=== PATIENT | female | born 2000 | race Caucasian/White ===

== ENCOUNTER 2019-04-09 03:05 | Emergency (ER) | payer OTHER ==
[~2019-04-09] VITALS: Ht 172.7 cm; Wt 68.2 kg
[2019-04-09] MEDS ORDERED: NEXP1IMP SC (03:33)
[2019-04-09 05:08] LABS: BLOOD UREA NITROGEN 11 MG/DL (7-18); CALCIUM LEVEL 8.7 MG/DL (8.5-10.1); CARBON DIOXIDE LEVEL 28 MEQ/L (21-32); CHLORIDE LEVEL 107 MEQ/L (98-107); CREATININE FOR GFR 0.84 MG/DL (0.55-1.30); GLUCOSE, FASTING 92 MG/DL (70-100); HCG, SERUM QUALITATIVE NEGATIVE (NEGATIVE); POTASSIUM SERUM 3.8 MEQ/L (3.5-5.1); SODIUM LEVEL 140 MEQ/L (136-145)
[2019-04-09] MEDS ORDERED: ISOVUE-370 76% 100ML VIAL (Q9967) As Ordered ONE (05:26)
--- NOTE | 2019-04-09 06:37 | REPVR ---
EXAM: CT Angiography Chest With Contrast EXAM DATE/TIME: 04/09/2019 4:28 AM CLINICAL HISTORY: 18 years old, female; Right-sided chest pain; Additional info: Right upper chest pain, elevated d-dimer TECHNIQUE: Imaging protocol: Axial computed tomographic angiography images of the chest with intravenous contrast using CT angiography protocol. Coronal and sagittal reformatted images were created and reviewed. 3D rendering: MIP reconstructed images were created and reviewed. Radiation optimization: All CT scans at this facility use at least one of these dose optimization techniques: automated exposure control; mA and/or kV adjustment per patient size (includes targeted exams where dose is matched to clinical indication); or iterative reconstruction. Contrast material: ISO; Contrast volume: 75 ml; Contrast route: AC; COMPARISON: No relevant prior studies available. FINDINGS: Pulmonary arteries: The main pulmonary artery measures 19 mm. No pulmonary embolism is identified. Aorta: The ascending thoracic aorta measures 19 mm. 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 Lungs: Unremarkable. No consolidation. No masses. Pleural space: Unremarkable. No pneumothorax. No pleural effusion. Heart: Unremarkable. No cardiomegaly. No pericardial effusion. Mediastinum: There is soft tissue conforming to the anterior mediastinum consistent with residual thymic tissue. Liver: A right hepatic branch originates from the SMA. Lymph nodes: Unremarkable. No enlarged lymph nodes. Bones/joints: Unremarkable. No acute fracture. Soft tissues: Unremarkable. IMPRESSION: 1. 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 The right hepatic artery originates from the SMA. 2. Otherwise negative CTA chest. No pulmonary embolism is identified. Electronically signed by: Javed Mackenzie On 04/09/2019 06:36:50 AM
[2019-04-09 06:46] VITALS: BP 129/60
[2019-04-09] MEDS ORDERED: IBUP-1022 PO (06:49)
--- NOTE | 2019-04-09 17:36 | ECGEPIP ---
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
--- NOTE | 2019-04-10 12:14 | ED PDOC ---
Post-Departure Follow-Up ft ye petty and dr moreno faxed formal report of cta chest for fu Aleksandr Gracia MD Apr 10, 2019 12:14
== END 2019-04-09 07:00 | disposition home or self-care (01) ==
LOC: M ED 03:05
DX: R07.89 Other chest pain (principal); I77.4 Celiac artery compression syndrome; I45.10 Unspecified right bundle-branch block; Z79.3 Long term (current) use of hormonal contraceptives
CPT/HCPCS: 36415; 71275; 80048; 84703; 85379; 93005; 99284; Q9967

== ENCOUNTER 2020-06-01 21:28 | Emergency (ER) | payer OTHER ==
[~2020-06-01] VITALS: Ht 172.7 cm; Wt 79.1 kg
[~2020-06-01 21:28] MED LIST: IBUP-1022 PO; NEXP1IMP SC
[2020-06-02] MEDS ORDERED: MAGIC MOUTHWASH SUSPENSION BTL SS STA (00:29)
[2020-06-02] MEDS ORDERED: PSEUDOEPHEDRINE 30 MG TAB PO STA (00:29)
[2020-06-02] MEDS ORDERED: NAPROXEN 250 MG TAB PO ONE (00:30)
[2020-06-02] MEDS ORDERED: ONDANSETRON 4 MG ORAL DISINTEGRATING TAB PO ONE (00:30)
--- NOTE | 2020-06-02 00:46 | REPVR ---
PROCEDURE INFORMATION: Exam: XR Chest, 1 View Exam date and time: 06/02/2020 12:29 AM Age: 20 years old Clinical indication: Other: Cough; Additional info: Productive cough, SOB TECHNIQUE: Imaging protocol: XR of the chest Views: 1 view. COMPARISON: CT ANGIO CHEST 04/09/2019 5:30 AM FINDINGS: Lungs: Degree of lung inflation is normal. No evidence of pulmonary edema. No focal consolidation or parenchymal lung mass. Pleural space: No pleural effusion or pneumothorax. Heart/Mediastinum: Cardiac silhouette appears normal. No adenopathy or hilar mass. Bones/joints: Osseous structures show no concerning abnormality. IMPRESSION: No acute or focal cardiopulmonary process. Electronically signed by: Claude Clark On 06/02/2020 00:45:52 AM
[2020-06-02 04:01] VITALS: BP 126/86
== END 2020-06-02 04:02 | disposition home or self-care (01) ==
LOC: M ED 21:28
DX: J06.9 Acute upper respiratory infection, unspecified (principal); Z79.3 Long term (current) use of hormonal contraceptives
CPT/HCPCS: 71045; 87880; 99284; Q0162; U0002